=== PATIENT | female | born 1955 | race Native Hawaiian/Other Pacific Islander ===

== ENCOUNTER 2016-07-26 09:29 | Outpatient (CLI) | payer BC | END 2016-07-26 19:02 | disposition home or self-care (01) | LOC: MRI 09:29 | DX: M25.50 Pain in unspecified joint (principal) ==

== ENCOUNTER 2018-11-06 11:03 | Outpatient (CLI) | payer BC, OTHER | END 2018-11-06 23:05 | disposition home or self-care (01) | LOC: RAD 11:03 | DX: M25.511 Pain in right shoulder (principal); M25.512 Pain in left shoulder; M54.2 Cervicalgia; M54.6 Pain in thoracic spine; M54.5 Low back pain; M79.644 Pain in right finger(s); W10.8XXA Fall (on) (from) other stairs and steps, initial encounter ==

== ENCOUNTER 2018-11-26 13:12 | Outpatient (CLI) | payer BC, OTHER | END 2018-11-26 23:48 | disposition home or self-care (01) | LOC: MRI 13:12 | DX: M25.512 Pain in left shoulder (principal); M25.612 Stiffness of left shoulder, not elsewhere classified ==

== ENCOUNTER 2019-06-26 09:58 | Outpatient (CLI) | payer BC | END 2019-06-26 22:46 | disposition home or self-care (01) | LOC: MRI 09:58 | DX: M75.122 Complete rotator cuff tear or rupture of left shoulder, not specified as traumatic (principal) ==

== ENCOUNTER 2020-10-19 10:00 | Outpatient (CLI) | payer OTHER | END 2020-10-19 11:00 | disposition home or self-care (01) | LOC: MRI 10:00 | PROVIDERS: ATTEND Physician Assistant | DX: M47.896 Other spondylosis, lumbar region (principal); M54.2 Cervicalgia ==